=== PATIENT | female | born 1940 | race Caucasian/White ===

== ENCOUNTER → 2017-02-13 | Day surgery (SDC) | payer OTHER, BC ==
--- NOTE | 2017-02-14 16:26 | PATH ---
Cytology Non-Gynecological Report Patient Name: DEANNA ANGELES [facility]. Rec. #: [id number] /Age/Gender: 1940 (Age: 77) / F Account: [id number] Location: [facility] Taken: 02/13/2017 Received: 02/13/2017 Reported: 02/14/2017 Physicians: Marielos Ley M.D. Specimen(s) Received RIGHT THYROID FNA Clinical History Right calcified nodule, 0.79 x 0.73 x 0. 75 cm Final Diagnosis THYROID, RIGHT, FINE NEEDLE ASPIRATION: UNSATISFACTORY FOR EVALUATION. B[place]ES[place] CLASS I: NON-DIAGNOSTIC. RARE STROMAL CELLS, BLOOD AND DEBRIS PRESENT. Electronically Signed Daiana Wilburn M.D. Gross Description Received are eight direct smears, four of which are air-dried and Diff-Quik stained, and four of which are alcohol fixed and Pap stained. Also received is 20 ml of pink fluid in formalin from which one cellblock is prepared.
== END | disposition home or self-care (01) ==
LOC: JRADIR 08:32
PROVIDERS: ATTEND Internal Medicine Endocrinology, Diabetes & Metabolism
PROC: 0G9H3ZX Drainage of Right Thyroid Gland Lobe, Percutaneous Approach, Diagnostic (ICD-10-PCS; principal; 2017-02-13)
PROC: BG44ZZZ Ultrasonography of Thyroid Gland (ICD-10-PCS; 2017-02-13)
DX: E04.1 Nontoxic single thyroid nodule (principal)
CPT/HCPCS: 76942; 88173; 88305-TC